=== PATIENT | male | born 1930 | race Caucasian/White ===

== ENCOUNTER 2016-10-16 07:19 | Inpatient (IN) | payer MEDICARE ==
--- NOTE | 2016-10-15 14:57 | HP ---
DATE OF CLINIC: 10/11/2016 MARGARITA THOMAS : 1930 PLANNED PROCEDURE: Left Total Hip Arthroplasty DATE OF SURGERY: October 16, 2016 SURGEON: Niranajn Solis M.D. HISTORY OF PRESENT ILLNESS Margarita Thomas is an 86 year old male. * Medication list reviewed with patient allergy list reviewed with patient. * Tried NSAIDS Ibuprofen PRN * Has not tried Physical Therapy * Has not tried Injections This is an 86-year-old gentleman who is referred here from his primary care physician Jaycob Sierra for left hip pain increasing notably over the last six weeks, but long-standing prior to that. The patient is a very active 86-year-old gentleman who is complaining of left hip pain that has significantly decreased his ability to participate in his desired level of activities. He rates his pain is 7-8. He localizes most of the pain to the left buttocks and some in the left groin crease. He notes that a flexed position at the hip seems to be the most problematic, it makes it difficult for him to get in and out of his car and causes pain whenever he is more active. He has not noticed any instability in the hip, but does note that his left knee also has some loss of terminal extension and that may be contributing some to the positioning issues that he is got with his hip. He has not had any previous surgeries, he has been taking some ibuprofen and says that this does give him some relief of symptoms in his hip, but nothing durable. It does not completely resolve the problem. He has not had any injections. He has not seen the physical therapist. He has not had any previous surgeries at the site. After discussion and review of treatment options, both operative and non-operative, he has elected to proceed with surgery and presents today preoperatively. MEDICAL AND SURGICAL HISTORY: Past medical history is actually pretty mild he has a history of ulcers. He has a remote history of hepatitis A infection. He has had previous fractures. He has no arthritis. He had a prostatectomy and has a history of skin cancer otherwise, no current medications other than some topical anti-inflammatory. CURRENT MEDICATION * Voltaren 1 % Gel 1 once a day 0 days, 0 refills PAST MEDICAL/SURGICAL HISTORY Reported: Medical: Stomach problems, a fracture, cancer Skin, history of Arthritis, Fainting, and Hepatitis A. Surgical / Procedural: Prior surgery Sinus Sx 1964 Right Hammer Toe 1978 TURP 1978, Appendectomy 1971 and Tonsillectomy 1950 SOCIAL HISTORY Social history changed. Behavioral: No tobacco use. Never smoked. Smoking status: Never smoker. Alcohol: Alcohol use a social drinker Very Minimal. Work: Retired Radiologist. ALLERGIES * Penicillin FAMILY HISTORY 2 children living Family medical history Mother: Stroke, OA Father: Stroke, OA, Depression REVIEW OF SYSTEMS No recent constitutional symptoms to include fevers and chills. No cardiovascular symptoms to include chest pain or palpitations. No respiratory symptoms to include shortness of breath or recent infections. PHYSICAL FINDINGS * Vitals taken 10/11/2016 11:47 am BP-Sitting R 104/58 mmHg Pulse Rate-Sitting 67 bpm Temp-Oral 98 F Height 71 in Weight 191 lbs Body Mass Index 26.6 kg/m2 Body Surface Area 2.07 m2 Pain Level 6 Ears, Nose, Throat: * ENT: normal. Lungs: * Clear to auscultation. Cardiovascular: Heart Rate and Rhythm: * Normal. Abdomen: * Normal. Neurological: Motor: * Dominant Hand = Right Hand. Patient is a well-developed, well-nourished male in no acute distress. They are awake, alert and conversant throughout the encounter. He is accompanied by his 94-year-old . They are both very pleasant. HEENT: Is normocephalic and atraumatic. Extraocular movements are intact. NECK: He has full-motion in his neck LUNGS: His lungs inflate equally. ABDOMEN: He is got a soft abdomen. EXTREMITIES: Well perfused extremities. FOCUSED MUSCULOSKELETAL EXAM: The patient ambulates with a bit of antalgia on the left side. His hip is resting and slightly flexed position as is the knee. The ankle is within normal limits. His hip has tenderness to palpation in the groin crease, and some in the buttocks nothing over the greater trochanter. He can go from about 5 degrees short of terminal extension were he feels a lot of tightness anteriorly up to flexion of about 70 degrees. Internal rotation causes significant discomfort but in extension and in flexion. External rotation is more tolerable and he can get about 20 degrees of that. He can abduct about 20 degrees with the hip in extension. He is able to perform a straight leg raise, but he has pain at the hip which constitutes as a positive [facility] exam. He has no evidence of instability. He has 5/5 strength in flexion, extension, and abduction. A warm and well perfused leg distally with intact sensation. He has about a 10 degree flexion contracture at the left knee. IMAGING A review of his x-rays demonstrates prior right hip total arthroplasty with components in good position with no evidence of loosening or periprosthetic complications. His left hip shows a significant CAM bump with near complete obliteration of the superior joint space, medialization of the hip without protrusio, but no fractures or dislocations. ASSESSMENT An 86-year-old healthy gentleman with activity limiting pain for an extended period of time in his left hip which has failed a course with appropriate non-operative measures. PREVIOUS TESTS * Test: URINALYSIS WITH MICROSCOPIC Report Date: 10/09/2016 EPITHELIAL CELL 0-1 WBC 0-1 GLUCOSE NEGATIVE BACTERIA 0 PH,URINE 6.0 SPEC. GRAVITY 1.020 KETONE TRACE NITRITE NEGATIVE RBC 0-1 BLOOD NEGATIVE BILIRUBIN NEGATIVE APPEARANCE CLEAR PROTEIN 1+ COLOR YELLOW LEUK ESTERASE NEGATIVE UROBILINOGEN NORMAL * Test: PROTHROMBIN TIME Report Date: 10/09/2016 PROTIME 10.8 s INR 1.03 * Test: PARTIAL THROMBOPLASTIN TIME Report Date: 10/09/2016 APTT 27.7 s * Test: COMPREHENSIVE METABOLIC PANEL Report Date: 10/09/2016 ALT/SGPT 20 U/L ALBUMIN 4.2 g/dL ALB/GLOB RATIO 1.8 BUN 24 mg/dL BUN/CREAT RATIO 20 CALCIUM 10.0 mg/dL GLUCOSE 121 mg/dL High CREATININE 1.2 mg/dL SODIUM 140 meq/L POTASSIUM 3.9 meq/L CHLORIDE 100 meq/L CARBON DIOXIDE 33 meq/L High ANION GAP 11 meq/L TOT PROTEIN 6.5 g/dL GLOBULIN 2.3 g/dL BILI,TOTAL 0.8 mg/dL AST/SGOT 21 U/L ALK PHOSPHATASE 83 U/L GFR 57 Low * Test: CBC NO DIFF Report Date: 10/09/2016 WBC 10.0 10*3/mL MCV 101.3 fL High RBC 5.20 10*6/uL MCH 34.6 pg High MCHC 34.2 g/dL RDW 11.8 % PLATELET COUNT 272 10*3/mL HCT 52.7 % High HGB 18.0 g/L * Test: MRSA SCREEN Report Date: 10/10/2016 MRSA SCREEN NEGATIVE * Test: MSSA SCREEN Report Date: 10/10/2016 MSSA SCREEN NEGATIVE FOR STAPHYLOCOCCUS AUREUS THERAPY * Patient fall risk screen positive dizziness/vertigoo today. * Patient eligible for fall risk assessment. * Patient received fall risk assessment. PLAN * Unilateral primary osteoarthritis, left hip OxyCONTIN 10 MG T12A, Take 1 tablet by mouth every 12 hours for baseline pain control, 14 days, 0 refills OxyCODONE HCl 5 MG TABS, Take 1-2 tablets by mouth every 4 hours as needed for severe breakthrough pain, 14 days, 0 refills TraMADol HCl 50 MG TABS, Take 1-2 tablets by mouth every 6 hours as needed for moderate breakthrough pain, 30 days, 0 refills * OTHER PT Orders Holding off on Outpatient PT - Highly likely to go into SNF and or receive Home Health services in [facility]. * Total hip replacement -Left CARE TEAM [facility] SURGICAL CONSENT We have discussed surgical options including left DEMIAN and non-operative management. The patient was counseled in detail regarding the diagnosis, treatment options available, prognosis of each treatment option and the potential risks and complications. The risks of surgery include, but are not limited to, anesthetic , neurovascular complications, pulmonary embolism, deep vein thrombosis, wound dehiscence, failure of any or all of the discussed procedures, infection of the joint or surrounding soft tissue, need for revision surgery, chronic pain, limitations in activities of daily living, inability to return to work, and loss of normal range of motion or functional use of the extremity. There is the possibility of failure over time that may require additional operative or non-operative treatment. The patient acknowledged that there are a number of perioperative risks not mentioned here and would still like to proceed. The patient is aware of and understands these risks, and wishes to proceed with the proposed surgical procedure and other procedures as indicated at the time of surgery. We will have the patient see their PCP for a preoperative medical risk assessment. The preoperative instructions were reviewed with the patient and all questions were answered. PB/sg
[2016-10-16] MEDS ORDERED: ONDANSETRON 4 MG/2ML 2 ML VIAL IV ONE (08:00)
[2016-10-16] MEDS ORDERED: FAMOTIDINE 20 MG TABLET PO ONE (08:00)
[2016-10-16] MEDS ORDERED: GABAPENTIN 600 MG TABLET PO ONE (08:00)
[2016-10-16] MEDS ORDERED: CLONIDINE HCL 0.1 MG/24 HR (7 DAY PATCH) TD SCH (08:00)
[2016-10-16] MEDS ORDERED: OXYCODONE HCL 10 MG TAB.SR PO ONE ×2 (08:00→08:40)
[2016-10-16] MEDS ORDERED: CELECOXIB 200 MG CAPSULE PO ONE (08:00)
[2016-10-16] MEDS ORDERED: TRAMADOL HCL 50 MG TABLET PO ONE (08:00)
[2016-10-16] MEDS ORDERED: CLINDAMYCIN 600 MG PREMIX 50 ML IV PRN (08:00)
[2016-10-16] MEDS ORDERED: ONDANSETRON 4 MG/2ML 2 ML VIAL ONE ×2 (08:40→10:30)
[2016-10-16] MEDS ORDERED: TRAMADOL HCL 50 MG TABLET ONE (08:40)
[2016-10-16] MEDS ORDERED: FAMOTIDINE 20 MG TABLET ONE (08:40)
[2016-10-16] MEDS ORDERED: LACTATED RINGERS 1,000 ML ONE (08:40)
[2016-10-16] MEDS ORDERED: IV START KIT ONE (08:40)
[2016-10-16] MEDS ORDERED: CELECOXIB 200 MG CAPSULE ONE (08:41)
[2016-10-16] MEDS ORDERED: GABAPENTIN 600 MG TABLET ONE (08:41)
[2016-10-16] MEDS ORDERED: CLONIDINE HCL 0.1 MG/24 HR (7 DAY PATCH) TD ONE (08:41)
[2016-10-16] MEDS ORDERED: CLINDAMYCIN 600 MG PREMIX 50 ML IV ONE (09:05)
[2016-10-16] MEDS ORDERED: BUPIVACAINE 0.25% (MDV) 24 ML, MORPHINE SULFATE 8 MG, EPINEPHRINE 0.3 MG in SODIUM CHLO... IF PRN (10:00)
[2016-10-16] MEDS ORDERED: BUPIVACAINE 0.25% (MDV) 20 ML in SODIUM CHLORIDE 0.9% FLUSH 20 ML IF PRN (10:00)
[2016-10-16] MEDS ORDERED: TRANEXAMIC ACID 1,000 MG in SODIUM CHLORIDE 0.9% 100 ML IV PRN (10:00)
[2016-10-16] MEDS ORDERED: POLYMYXIN B SULFATE 500,000 UNITS, BACITRACIN 25,000 UNITS in SODIUM CHLORIDE 3 L IRRIG... IR PRN (10:00)
[2016-10-16] MEDS ORDERED: LIDOCAINE 2% (PRES FREE) 5 ML VIAL ONE (10:27)
[2016-10-16] MEDS ORDERED: PROPOFOL 20 ML IV ONE ×2 (10:27→13:02)
[2016-10-16] MEDS ORDERED: FENTANYL 100 MCG/2 ML VIAL ONE (10:28)
[2016-10-16] MEDS ORDERED: SPINAL PROCEDURAL TRAY 1 EACH ONE (11:07)
[2016-10-16] MEDS ORDERED: EPHEDRINE SULFATE UD SYR 25 MG 25 MG/5 ML SYRINGE IV ONE (11:59)
[2016-10-16] MEDS ORDERED: HYDROMORPHONE HCL 1 MG/ML SYRINGE IV PRN (12:58)
[2016-10-16] MEDS ORDERED: MEPERIDINE 25 MG/ML SYRINGE IV PRN (12:58)
[2016-10-16] MEDS ORDERED: FENTANYL 100 MCG/2 ML VIAL IV PRN (12:58)
[2016-10-16] MEDS ORDERED: PROMETHAZINE HCL 25 MG/ML VIAL IM PRN (12:58)
[2016-10-16] MEDS ORDERED: ONDANSETRON 4 MG/2ML 2 ML VIAL IV PRN ×2 (12:58→14:51)
[2016-10-16] MEDS ORDERED: NALOXONE HCL 0.4 MG/ML VIAL IV PRN (12:58)
[2016-10-16] MEDS ORDERED: ATROPINE SULFATE 0.4 MG/1 ML VIAL IV PRN (12:58)
[2016-10-16] MEDS ORDERED: LACTATED RINGERS 1,000 ML IV SCH (13:00)
[2016-10-16] MEDS ORDERED: DEXAMETHASONE SOD PHOS 4 MG/1 ML VIAL ONE (13:02)
--- NOTE | 2016-10-16 13:40 | PCMBPN ---
Brief Post Op Note: Date of Procedure: 10/16/16 Start Time: 1200 Preoperative Diagnosis: 1. left hip osteoarthritis Postoperative Diagnosis: 1. Same Procedure: left total hip arthroplasty Surgeon: Niranjan Solis MD Assist: Fabio Hazel PA-C Anesthesia: Mindy Walsh Findings: as above Condition: stable to PACU Complications: none IV Fluids: 1800 mLs of LR Urine Output: 400 mLs Estimated Blood Loss: 250 mLs Tourniquet Time: N/A Specimens: N/A Implants: Depuy [place] cup 60 mm with one 3.5 mm screw, dome hole plug, and 60 /40 +4 liner; Trilock H.O. size 9 stem with 40 mm +5 biolox head Drains: N/A Niranjan Solis MD
--- NOTE | 2016-10-16 14:48 | RAD ---
PELVIS HISTORY: Postop left hip replacement. COMPARISONS: 09/27/2016. FINDINGS: An AP view of the pelvis was performed demonstrating bilateral total hip arthroplasties with interval placement of a total left hip arthroplasty since prior exam of 09/27/2016. No evidence of a pericomponent fracture is visualized. There are janice within the overlying superficial left-sided soft tissues. IMPRESSION: 1. Interval placement of a total left hip arthroplasty with no pericomponent fracture visualized.
[2016-10-16] MEDS ORDERED: TRAMADOL HCL 50 MG TABLET PO PRN (14:51)
[2016-10-16] MEDS ORDERED: HYDROMORPHONE HCL 0.5 MG/0.5 ML SYRINGE IV PRN (14:51)
[2016-10-16] MEDS ORDERED: HYDROXYZINE PAMOATE 25 MG CAPSULE PO PRN (14:51)
[2016-10-16] MEDS ORDERED: CALCIUM CARBONATE 500 MG TAB.CHEW PO PRN (14:51)
[2016-10-16] MEDS ORDERED: KETOROLAC TROMETHAMINE 15 MG/ML VIAL IV PRN (14:51)
[2016-10-16 15:36] VITALS: BMI 27.9
[2016-10-16] MEDS ORDERED: PUMP TUBING ONE (16:26)
[2016-10-16] MEDS: D5 1/2NS with 20 mEq KCL 1,000 ML IV SCH (16:30)
[2016-10-16] MEDS: ACETAMINOPHEN 500 MG TABLET PO SCH ×2 (17:46→23:46)
[2016-10-16] MEDS: CLINDAMYCIN 600 MG PREMIX 600 MG in Premix (D5W) 50 ml 1 EACH IV SCH ×2 (17:46→23:46)
[2016-10-16] MEDS: PYRIDOXINE HCL 100 MG TABLET PO SCH (20:58)
[2016-10-16] MEDS: OXYCODONE HCL 5 MG TABLET PO PRN (20:58)
[2016-10-16] MEDS: DOCUSATE SODIUM 100 MG CAPSULE PO SCH (20:58)
[2016-10-16] MEDS: VITAMIN D PO SCH (20:58)
[2016-10-16] MEDS: ASCORBIC ACID 500 MG TABLET PO SCH (20:58)
[2016-10-16] MEDS: CALCIUM CARBONATE 600 MG/VITAMIN D3 400 UNIT/TABLET PO SCH (20:58)
[2016-10-16] MEDS: OXYCODONE HCL 10 MG TAB.SR PO SCH (20:59)
[2016-10-17] MEDS: D5 1/2NS with 20 mEq KCL 1,000 ML IV SCH ×2 (01:09→07:58)
[2016-10-17] MEDS: ACETAMINOPHEN 500 MG TABLET PO SCH ×3 (05:45→17:49)
[2016-10-17 06:23] LABS: HEMATOCRIT 41.8 % (32.0-52.0); HEMOGLOBIN 13.7 gm/l (14.0-18.0); MEAN CORPUSCULAR HEMOGLOBIN 33.4 pg (27.0-31.0); MEAN CORPUSCULAR HGB CONC 32.8 g/dl (33.0-37.0); RED CELL DISTRIBUTION WIDTH 11.9 % (11.5-14.5)
[2016-10-17 07:22] LABS: CALCIUM 8.7 mg/dL (8.6-10.3)
[2016-10-17] MEDS ORDERED: REMOVE PATCH 1 EACH UNIT TD SCH (08:00)
--- NOTE | 2016-10-17 08:33 | PDOC43 ---
- Subjective Findings: POD1 after Left DEMIAN. Patient doing well and without new complaint today. Subjective: Reports Pain Tolerable, Denies Flatus, Denies Chest Pain, Denies Shortness of Breath, Denies Nausea, Denies Vomiting - Objective Vital Signs Temperature 97.5 F 10/17/16 07:12 Pulse Rate 59 10/17/16 07:12 Respiratory Rate 17 10/17/16 07:54 Blood Pressure 96/66 10/17/16 07:12 O2 Saturation by Pulse Oximetry 96 10/17/16 07:12 Oxygen Delivery Method Room Air Oxygen Flow Rate 0 Laboratory 10/17/16 06:00 10/17/16 06:00 10/17/16 06:00 RBC 4.10 L MCV 102.0 H MCH 33.4 H MCHC 32.8 L Anion Gap 7 L Active Medication Orders Category Date Time Status Acetaminophen [Tylenol] Med 10/16/16 18:00 Active 1,000 mg PO Q6HR Ascorbic Acid [Vitamin C] Med 10/16/16 21:00 Active 500 mg PO BID Aspirin (Enteric Coated) [Ecotrin] Med 10/17/16 09:00 Active 325 mg PO DAILY Bisacodyl [Dulcolax] Med 10/19/16 13:34 Active 10 mg UT DAILY PRN Calcium Carbonate [Tums] Med 10/16/16 14:51 Active 1,000 - 2,000 mg PO Q2H PRN Calcium Carbonate/Vitamin D3 Med 10/16/16 21:00 Active 1 each PO BID Cyanocobalamin [Vitamin B-12] Med 10/18/16 09:00 Active 5,000 mcg PO Q3D D5 1/2NS with 20 mEq KCL [D51/2NS with 20 mEq KCL] 1, Med 10/16/16 14:51 Active 000 ml IV 125 mls/hr Docusate Sodium [Colace] Med 10/16/16 21:00 Active 100 mg PO BID Hydromorphone HCl [Dilaudid] Med 10/16/16 14:51 Active 0.5 mg IV Q1H PRN Hydroxyzine Pamoate [Vistaril] Med 10/16/16 14:51 Active 25 - 50 mg PO Q4H PRN Ketorolac Tromethamine [Toradol] Med 10/16/16 14:51 Active 15 mg IV Q6H PRN Magnesium Hydroxide [Milk of Magnesia] Med 10/17/16 13:34 Active 30 ml PO DAILY PRN Magnesium Oxide Med 10/17/16 09:00 Active 800 mg PO DAILY Multivitamins [One-A-Day] Med 10/17/16 09:00 Active 1 tab PO DAILY Ondansetron 4 mg/2ml Vial [Zofran] Med 10/16/16 14:51 Active 4 - 6 mg IV Q6H PRN Oxycodone HCl [Roxicodone] Med 10/16/16 14:51 Active 5 - 10 mg PO Q4H PRN Oxycodone Sr [Oxycontin] Med 10/16/16 21:00 Active 10 mg PO Q12HR Pyridoxine HCl [Vitamin B-6] Med 10/16/16 21:00 Active 100 mg PO BID Remove Patch Med 10/17/16 13:34 Once 1 each TD X1 ONE Sodium Chloride 0.9% Flush [Normal Saline 10ml Flush] Med 10/16/16 14:51 Active 10 - 50 ml IV PRN PRN Sodium Chloride 0.9% Flush [Normal Saline 10ml Flush] Med 10/16/16 17:00 Active 10 ml IV Q8HR Tramadol HCl [Ultram] Med 10/16/16 14:51 Active 50 mg PO Q6H PRN Trazodone HCl [Desyrel] Med 10/16/16 14:51 Active 25 mg PO BEDTIME PRN Triamcinolone Acetonide [Nasacort] Med 10/17/16 09:00 Pending 1 sprays NS DAILY Vitamin D Med 10/16/16 21:00 Active 800 interunits PO BID Intake and Output 10/15/16 10/16/16 10/17/16 23:59 23:59 23:59 Intake Total 1800 2409 Output Total 700 450 Balance 1100 1959 General: Afebrile Lungs: Normal Air Movement Skin: Normal Color, Warm, Dry - Left Lower Extremity Incision: Dressing Clean/Dry/Intact, Well Approximated, Fiordaliza Intact, No Dressing Saturated, No Erythema, No Rash, No Ecchymosis Motor: Extensor Hallucis Longus: 5/5, Tibialis Anterior: 5/5, Gastrocnemius: 5/5 , Peroneals: 5/5 Gross Sensation to Light Touch: Present: Deep Peroneal Nerve, Superficial Peroneal Nerve - Problems (1) Status post total hip replacement, left Status: Acute - Additional Comments 1. Physical Therapy: WBAT with [facility]. Plan for transfer to SNF. 2. Pain Control: Multimodal pain control as needed. 3. DVT Prophylaxis: [id number] daily, mobilization. 4. Disposition: Plan for transfer to SNF Friday. 5. Medical Issues: Glucose is 160 and WBC is 12.6, otherwise no new complaints or new medical problems.
[2016-10-17] MEDS: OXYCODONE HCL 10 MG TAB.SR PO SCH ×2 (09:17→20:00)
[2016-10-17] MEDS: ASCORBIC ACID 500 MG TABLET PO SCH ×2 (09:17→20:00)
[2016-10-17] MEDS: DOCUSATE SODIUM 100 MG CAPSULE PO SCH ×2 (09:17→20:00)
[2016-10-17] MEDS: Magnesium Oxide 400 MG TABLET PO SCH (09:17)
[2016-10-17] MEDS: PYRIDOXINE HCL 100 MG TABLET PO SCH ×2 (09:17→20:00)
[2016-10-17] MEDS: VITAMIN D PO SCH ×2 (09:18→20:00)
[2016-10-17] MEDS: OXYCODONE HCL 5 MG TABLET PO PRN ×2 (09:18→20:00)
[2016-10-17] MEDS: CALCIUM CARBONATE 600 MG/VITAMIN D3 400 UNIT/TABLET PO SCH ×2 (09:18→20:00)
[2016-10-17] MEDS: ASPIRIN (ENTERIC COATED) 325 MG TABLET.EC PO SCH (09:18)
[2016-10-17] MEDS: MULTIVITAMINS 1 TAB TABLET PO SCH (09:18)
[2016-10-17] MEDS: REMOVE PATCH 1 EACH UNIT TD ONE ×2 (09:20→14:24)
[2016-10-17] MEDS ORDERED: MAGNESIUM HYDROXIDE 30 ML UDCUP PO PRN (13:34)
[2016-10-17] MEDS: TRAZODONE HCL 50 MG TABLET PO PRN (22:34)
[2016-10-18] MEDS: ACETAMINOPHEN 500 MG TABLET PO SCH ×4 (00:13→17:00)
[2016-10-18] MEDS: OXYCODONE HCL 5 MG TABLET PO PRN ×2 (00:14→05:46)
[2016-10-18] MEDS: TRAZODONE HCL 50 MG TABLET PO PRN (00:14)
[2016-10-18 06:04] LABS: HEMATOCRIT 39.1 % (32.0-52.0); HEMOGLOBIN 12.9 gm/l (14.0-18.0)
[2016-10-18] MEDS ORDERED: CYANOCOBALAMIN (VITAMIN B-12) 250 MCG TABLET PO SCH (09:00)
[2016-10-18] MEDS: OXYCODONE HCL 10 MG TAB.SR PO SCH ×2 (10:11→20:53)
[2016-10-18] MEDS: ASCORBIC ACID 500 MG TABLET PO SCH ×2 (10:11→20:53)
[2016-10-18] MEDS: ASPIRIN (ENTERIC COATED) 325 MG TABLET.EC PO SCH (10:11)
[2016-10-18] MEDS: Magnesium Oxide 400 MG TABLET PO SCH (10:11)
[2016-10-18] MEDS: DOCUSATE SODIUM 100 MG CAPSULE PO SCH ×2 (10:12→20:53)
[2016-10-18] MEDS: CALCIUM CARBONATE 600 MG/VITAMIN D3 400 UNIT/TABLET PO SCH ×2 (10:12→20:53)
[2016-10-18] MEDS: MULTIVITAMINS 1 TAB TABLET PO SCH (10:12)
[2016-10-18] MEDS: TRIAMCINOLONE ACETONIDE NS SCH ×2 (10:12→10:13)
[2016-10-18] MEDS: VITAMIN D PO SCH ×2 (10:14→20:53)
[2016-10-18] MEDS: PYRIDOXINE HCL 100 MG TABLET PO SCH ×2 (10:14→20:53)
[2016-10-18] MEDS ORDERED: BISACODYL 10 MG SUP PR PRN (17:17)
[2016-10-19] MEDS: ACETAMINOPHEN 500 MG TABLET PO SCH ×2 (00:15→06:08)
[2016-10-19 07:06] LABS: HEMATOCRIT 38.5 % (32.0-52.0)
--- NOTE | 2016-10-19 08:17 | PDOC43 ---
- Subjective Findings: Doing well this AM, no new complaints, tolerating medications, diet and therapies. Had BM yesterday, eager to get to SNF today. Subjective: Reports Flatus, Reports Pain Tolerable, Denies Chest Pain, Denies Shortness of Breath, Denies Nausea, Denies Vomiting, Denies Fever - Objective Vital Signs Temperature 98.5 F 10/19/16 07:48 Pulse Rate 71 10/19/16 07:48 Respiratory Rate 18 10/19/16 07:48 Blood Pressure 120/68 10/19/16 07:48 O2 Saturation by Pulse Oximetry 96 10/19/16 07:48 Oxygen Delivery Method Room Air Oxygen Flow Rate 0 Laboratory 10/19/16 06:00 10/17/16 06:00 Active Medication Orders Category Date Time Status Acetaminophen [Tylenol] Med 10/16/16 18:00 Active 1,000 mg PO Q6HR Ascorbic Acid [Vitamin C] Med 10/16/16 21:00 Active 500 mg PO BID Aspirin (Enteric Coated) [Ecotrin] Med 10/17/16 09:00 Active 325 mg PO DAILY Bisacodyl [Dulcolax] Med 10/18/16 17:17 Active 10 mg UT DAILY PRN Calcium Carbonate [Tums] Med 10/16/16 14:51 Active 1,000 - 2,000 mg PO Q2H PRN Calcium Carbonate/Vitamin D3 Med 10/16/16 21:00 Active 1 each PO BID Cyanocobalamin [Vitamin B-12] Med 10/18/16 09:00 Active 5,000 mcg PO Q3D Docusate Sodium [Colace] Med 10/16/16 21:00 Active 100 mg PO BID Hydromorphone HCl [Dilaudid] Med 10/16/16 14:51 Active 0.5 mg IV Q1H PRN Hydroxyzine Pamoate [Vistaril] Med 10/16/16 14:51 Active 25 - 50 mg PO Q4H PRN Magnesium Hydroxide [Milk of Magnesia] Med 10/17/16 13:34 Active 30 ml PO DAILY PRN Magnesium Oxide Med 10/17/16 09:00 Active 800 mg PO DAILY Multivitamins [One-A-Day] Med 10/17/16 09:00 Active 1 tab PO DAILY Ondansetron 4 mg/2ml Vial [Zofran] Med 10/16/16 14:51 Active 4 - 6 mg IV Q6H PRN Oxycodone HCl [Roxicodone] Med 10/16/16 14:51 Active 5 - 10 mg PO Q4H PRN Oxycodone Sr [Oxycontin] Med 10/16/16 21:00 Active 10 mg PO Q12HR Pyridoxine HCl [Vitamin B-6] Med 10/16/16 21:00 Active 100 mg PO BID Sodium Chloride 0.9% Flush [Normal Saline 10ml Flush] Med 10/16/16 14:51 Active 10 - 50 ml IV PRN PRN Sodium Chloride 0.9% Flush [Normal Saline 10ml Flush] Med 10/16/16 17:00 Active 10 ml IV Q8HR Tramadol HCl [Ultram] Med 10/16/16 14:51 Active 50 mg PO Q6H PRN Trazodone HCl [Desyrel] Med 10/16/16 14:51 Active 25 mg PO BEDTIME PRN Triamcinolone Acetonide [Nasacort] Med 10/17/16 09:00 Active 1 sprays NS DAILY Vitamin D Med 10/16/16 21:00 Active 800 interunits PO BID Intake and Output 10/17/16 10/18/16 10/19/16 23:59 23:59 23:59 Intake Total 4383 3140 650 Output Total 2675 1580 600 Balance 1708 1560 50 General: Afebrile, No Acute Distress HEENT: EOMI Lungs: Normal Air Movement Abdomen: Soft, No Tenderness Skin: Normal Color, Warm, Dry, Intact Neurological: Grossly Intact, Alert, Oriented x 4 Psych/Mental Status: Normal Affect, Normal Mood - Left Lower Extremity Incision: Dressing Clean/Dry/Intact, Well Approximated, Fiordaliza Intact, No Drainage, No Erythema, No Rash, No Ecchymosis Motor: Extensor Hallucis Longus: 5/5, Tibialis Anterior: 5/5, Gastrocnemius: 5/5 , Peroneals: 5/5, Quadriceps: 5/5 Gross Sensation to Light Touch: Present: Deep Peroneal Nerve, Superficial Peroneal Nerve, Medial Plantar Nerve, Lateral Plantar Nerve, Sural Nerve, Saphenous Nerve Capillary Refill: < 3 Seconds - Problems (1) Status post total hip replacement, left Status: Acute Assessment/Plan: POD#3 L DEMIAN 1. Physical Therapy: Did well with PT, still some assist with transfers. Cleared for SNF. 2. Pain Control: adequate on multimodal, rx written for SNF meds 3. DVT Prophylaxis: ASA 325 daily plus mechanical and ambulation 4. Disposition: to SNF today 5. Medical Issues: stable, on home meds Niranjan Solis MD - Additional Comments 1. Physical Therapy: WBAT with [facility]. Plan for transfer to SNF. 2. Pain Control: Multimodal pain control as needed. 3. DVT Prophylaxis: [id number] daily, mobilization. 4. Disposition: Plan for transfer to SNF Friday. 5. Medical Issues: Glucose is 160 and WBC is 12.6, otherwise no new complaints or new medical problems.
[2016-10-19 09:14] VITALS: BP 119/66
[2016-10-19] MEDS: DOCUSATE SODIUM 100 MG CAPSULE PO SCH (09:33)
[2016-10-19] MEDS: MULTIVITAMINS 1 TAB TABLET PO SCH (09:33)
[2016-10-19] MEDS: OXYCODONE HCL 10 MG TAB.SR PO SCH (09:33)
[2016-10-19] MEDS: PYRIDOXINE HCL 100 MG TABLET PO SCH (09:33)
[2016-10-19] MEDS: ASCORBIC ACID 500 MG TABLET PO SCH (09:34)
[2016-10-19] MEDS: ASPIRIN (ENTERIC COATED) 325 MG TABLET.EC PO SCH (09:34)
[2016-10-19] MEDS: Magnesium Oxide 400 MG TABLET PO SCH (09:34)
[2016-10-19] MEDS: VITAMIN D PO SCH (09:34)
[2016-10-19] MEDS: CALCIUM CARBONATE 600 MG/VITAMIN D3 400 UNIT/TABLET PO SCH (09:34)
[2016-10-19] MEDS: TRIAMCINOLONE ACETONIDE NS SCH (09:36)
[2016-10-19] MEDS ORDERED: BISACODYL 10 MG SUP PR PRN (13:34)
--- NOTE | 2016-10-21 14:13 | OP ---
Kirt THOMAS : 1930 [id number] DATE OF SERVICE: October 16, 2016 PREOPERATIVE DIAGNOSIS: Left hip osteoarthritis. POSTOPERATIVE DIAGNOSIS: Left hip osteoarthritis. PROCEDURE PERFORMED: LEFT TOTAL HIP ARTHROPLASTY. SURGEON: Niranjan Solis M.D. BLEACH MAKER: Dean Hazel P.A.-C. ANESTHESIA: Shelli Myers C.R.N.A. SPECIMENS: No material was sent to the laboratory. ESTIMATED BLOOD LOSS: 250 mL. FLUIDS REPLACED: 1800 mL of crystalloid. URINE OUTPUT: 400 mL. TOURNIQUET: None. IMPLANTS: DePuy [place] cup size 60 with a single 6.5 mm x 40 mm screw, a dome hole plug and a 60/40 mm +4 neutral poly liner, a DePuy TriLock size 9 high offset stem and a 40 mm +5 BioLox head. INDICATIONS: Patient is an 86-year-old male with long-standing left hip osteoarthritis which has failed to respond to a course of nonoperative measures. Patient has exam and radiographic findings, which support this diagnosis. In order to restore patient's ability to participate in desired level of activities they were offered a total hip arthroplasty. The risks, benefits and alternatives of therapy were discussed with the patient at length and they elected to proceed with surgery. The patient underwent preoperative clearances. Informed consent was obtained and documented in the chart and the patient was placed on the schedule at the first available convenience. DESCRIPTION OF PROCEDURE: The patient was identified in the pre-operative holding area where they were marked with an indelible marker by the operating surgeon. Patient was taken to the operating room where they underwent a spinal anesthetic and then was positioned on the right side using a pegboard for intraoperative positioning. An axillary roll was placed and all bony prominences were padded. The patient was prepped and draped in the usual sterile fashion for surgery and received perioperative antibiotics and tranexamic acid. A final operative time out was performed and confirmed by all members of the operative team. A standard posterior approach to the hip was used with dissection carried down to the fascia overlying the greater trochanter. The fascia was divided and a Charnley retractor was placed. The trochanteric bursa was excised. The sciatic nerve was identified and protected throughout the procedure. The leg was taken into internal rotation and the piriformis tendon with elevated out of the piriformis fossa and tagged for later repair and then an L-shaped arthrotomy was made dividing the capsule as far anteriorly as we could get on the neck and then taking up a posterior flap that involved the posterior capsule and the remainder of the short external rotators. At this point the hip was dislocated posteriorly and the level of our neck cut was marked out with a neck cut to guide. A neck cut was made with an oscillating saw and the head was excised. The anterior capsule was excised using a Bovie as was the entirety of the labrum and anterior and posterior and inferior retractors were placed. We started reaming with a 54 mm reamer to get medial to the true floor of the acetabulum and then reamed up to a 59 mm which gave us a good circumferential bleeding bone and appropriate fit. A 59 mm trial was placed and we were satisfied with the fit of the acetabulum. This was exchanged then for a 60 mm [place] cup with cluster holes. This was impacted in place and had excellent stability and position. Some overhanging bone in the anterior portion of the cup was excised using an osteotome; in addition a single 6.5 mm screw was placed into the most superior scruples or backups fixation. AA domed hole plug was placed and the neutral liner was impacted into the cup. At this point the anterior, posterior and inferior retractors were removed. The femoral neck elevator was placed and access to the proximal femur was obtained using a box osteotome and a canal finder. We broached up until we had good rotational and a longitudinal stability with a size 9 broach and then trialed off of that broach eventually settling on a high offset with a 50 mm head at +5 neck length. This gave us excellent stability throughout. Anatomic range of motion did not show excessive tightness in extension, showed no tightness in the sciatic nerve and appropriately matched the opposite leg length. At this point all the trials were removed from the femur. The canal was copiously irrigated with a pulse lavage and the final stem was impacted into place. A 40 mm +5 BioLox head was then tapped on to the trunnion and the hip was reduced. Again, we were satisfied with our range of motion, leg length and stability. Three drill holes were made in the posterior, superior greater trochanter and the sutures that had been previously placed in the piriformis and the posterior capsule were used to repair these structures back to the femur. The hip was placed into a slightly abducted and externally rotated position. The Charnley retractors were removed. Everything was copiously irrigated with sterile saline and we closed the fascia with a running #0 Quill, the subcutaneous fat with a running #0 Vicryl, the subcutaneous tissues with interrupted sutures of #2-0 Vicryl and the skin with janice. A sterile dressing of Xeroform, fluffs, ABDs and Medipore tape was applied. The drapes were removed. The patient was repositioned supine, transferred to a stretcher and taken postoperatively to the post anesthesia care unit in stable condition. There were no observed intraoperative conditions during this procedure. Job [id number] Cc: [facility]
--- NOTE | 2016-11-07 16:51 | PDOC5 ---
ADMIT DATE: 10/16/16 DISCHARGE DATE: 10/19/16 ADMISSION DIAGNOSES: left hip osteoarthritis PROCEDURES PERFORMED THIS HOSPITALIZATION: left total hip arthroplasty SURGEON:Niranjan Solis MD CONSULTATIONS: PT/OT/Care Mgmt BRIEF HISTORY:This is a 86 year old male patient with activity-limiting left hip osteoarthritis which has failed to respond adequately to a course of nonoperative measures. After a discussion of the risks, benefits, and alternatives of ongoing therapies, patient elected to proceed with left total hip arthroplasty. The patient underwent standard preoperative clearance and education, and presented to the hospital on the scheduled date for surgery. BRIEF HOSPITAL COURSE: Patient tolerated the procedure without complication and was admitted postoperatively for observation, pain control, and rehabilitation. Patient had an uncomplicated hospital course; see daily notes for details. On POD#2 patient met all criteria for discharge and [facility] Follow-up appointments for outpatient Physical Therapy and Orthopedics were provided at the time of discharge. Patient restarted preoperative medications, and received prescriptions for [\ postoperative pain medications, a stool softener, and DVT prophylaxis. Niranjan Solis MD - Discharge Diagnosis (1) Status post total hip replacement, left Status: Acute - Discharge Plan [facility]position: [facility] Additional Instructions: PROCEDURE: Left total hip arthroplasty (replacement) 1.) Dressings: may remove dressings on POD#4 and shower normally, let water run over incision and pat dry, but do not submerge or scrub incision. Cover with clean dressing and then change dressing every day until completely dry. 2.) Activity: may bear weight as tolerated with assistive device at all times. Outpatient PT as previously scheduled. Daily exercises as instructed by PT. Posterior hip precautions at all times as instructed. 3.) Medications: a.) Oxycontin: long-acting pain medication taken morning and evening for 10 days, no refills b.) Tramadol: as-needed pain medication for mild to moderate breakthrough pain (call for refills 3-4 days before running out) c.) Oxycodone: as-needed pain medication for severe breakthrough pain (call for refills 3-4 days before running out) d.) Aspirin 325 mg (over-the counter): one tab daily for 4 weeks for prevention of blood clots e.) Colace: stool softener to help prevent constipation, taken twice a day as long as you are on narcotics; if continued constipation, get Magnesium Citrate [id number] and use per instructions every 12 hours until you have a bowel movement. 4.) Followup: Oct 28 at 1:00 PM with my PA, Fabio Hazel at the [facility]. Call [phone] to confirm your appointment. 5.) Questions: call my office ([phone]) with any questions or concerns. Go to ED or call 911 for any acute changes in health status or emergencies. Niranjan Solis MD Prescriptions: Oxycodone Sr [OXYCONTIN 10 MG SR TABLET (SHF)] 10 mg PO Q12HR #20 tab.sr Oxycodone HCl [ROXICODONE 5 MG IR TABLET (SHF)] 5 - 10 mg PO Q4H PRN #80 tablet PRN Reason: Pain (Severe) Tramadol HCl [ULTRAM 50 MG TABLET (SHF)] 50 mg PO Q6H PRN #80 tablet PRN Reason: Pain (Mild) Follow-Up: Dean Hazel PA [Physician Rotary Operator] - 10/28/16 1:00 pm
== END 2016-10-19 12:15 | DRG 470 ==
LOC: OR 08:04 → MS 15:20
PROVIDERS: ADMIT Orthopaedic Surgery; ATTEND Orthopaedic Surgery
PROC: 0SRB04A Replacement of Left Hip Joint with Ceramic on Polyethylene Synthetic Substitute, Uncemented, Open Approach (ICD-10-PCS; principal; 2016-10-16)
DX: M16.12 Unilateral primary osteoarthritis, left hip (principal); Z87.11 Personal history of peptic ulcer disease; Z86.19 Personal history of other infectious and parasitic diseases; Z88.0 Allergy status to penicillin